=== PATIENT | female | born 1955 | race Caucasian/White ===

== ENCOUNTER 2022-05-11 18:55 | Emergency (ER) | payer OTHER, SELFPAY ==
[2022-05-11 19:09] VITALS: BP 143/76; PULSE 88; RESP 22; TEMP 37; O2SAT 97
[2022-05-11 19:14] VITALS: RESP 22
--- NOTE | 2022-05-11 19:30 | DI.RAD_ITS ---
Exam(s) XR PORTABLE CHEST AP EXAM: XR PORTABLE CHEST AP CLINICAL HISTORY: cough pneumonia, pui. TECHNIQUE: 2D digital imaging was performed. COMPARISON: No exams were available for comparison FINDINGS: Single AP portable view. There is sternotomy wires and plates. Prosthetic cardiac valve. Left atrial appendage clip noted. Heart size upper normal mediastinum is not widened. Right lung is clear. There is plate bolivar atelectasis in the left lung base. No obvious pleural effu sions. No pulmonary edema. IMPRESSION: Platelike atelectasis versus early infiltrate in the left lung base. Recommend nonportable PA and la teral views when clinically possible.Cardiac findings as above. DATA REPOSITORY: RADIATION DOSE DELIVERED: All CT scans at this facility use at least one of these dose optimization techniques: automated exposure control; mA and/or kV adjustment per patient size (includes targeted e xams where dose is matched to clinical indication); or iterative reconstruction.
--- NOTE | 2022-05-11 19:41 | ED.GENADUL_ITS ---
Discharge Plan Disposition Patient Disposition: STILL A PATIENT Condition: Stable Discharge Details Chief Complaint: GenMedical Clinical Impression: COVID-19 Primary Care Provider: None,None ED Provider: Tay Cheney Home Meds and New Rx's Prescriptions: No Action atorvastatin 40 mg Tablet 40 mg PO 1XD amlodipine 5 mg Tablet 5 mg PO 1XD guaifenesin [Ashton's Chest Congestion Mix] 100 mg/5 mL Liquid 100 mg PO Q2H PRN PRN (Reason: Cough) trazodone 150 mg Tablet 150 mg PO HS ferrous sulfate 325 mg (65 mg iron) Tablet 325 mg PO 1XD gabapentin 300 mg Capsule 600 mg PO 3XD hydrochlorothiazide 25 mg Tablet 25 mg PO 1XD losartan 100 mg Tablet 100 mg PO 1XD acetaminophen 500 mg Capsule 1,000 mg PO 1XD nortriptyline 50 mg Capsule 100 mg PO HS escitalopram oxalate 20 mg Tablet 20 mg PO 1XD aspirin 81 mg Capsule 81 mg PO 1XD Novolin 70/30 U-100 Insulin 100 unit/mL (70-30) Suspension 45 unit SUBCUT 1XD Novolin 70/30 U-100 Insulin 100 unit/mL (70-30) Suspension 48 unit SUBCUT HS Medical Decision Making More this is a 66-year-old female with a history of type 1 diabetes and coronary artery disease. She is visiting her daughter in [facility]. She was on a cruise to [facility] when she came down with fever, chills, cough. She reports that she was seen at a emergency department in [facility] last night. She was diagnosed with pneumonia by chest x-ray and given an initial dose of Augmentin and a prescription to follow. She has not had any further antibiotic. She reports a positive test for COVID. She been immunized and boosted x1 against COVID-19. Patient arrives afebrile and oxygenating normally. Her exam is reassuring. Given her age and comorbidities, screening laboratories and x-ray are to be obtained. Will assess for presence of pneumonia and consideration of treatment for COVID. As it is change of shift, patient to be signed out to Dr. Parson pending further evaluation HPI General Mode of arrival: ambulatory . Date/Time Provider Initiated Documentation: 05/11/22 18:56 . Limitations to Documentation: no limitations . Information obtained by: patient . History of Present Illness 66 year old F presents to the emergency department with the chief complaint of Cough, congestion, diagnosed with COVID and pneumonia yesterday, described as moderate, and is localized to the chest. Patient reports no radiation. Patient started experiencing this hour(s) and it has been constant. No relieving factors improve symptom(s), No exacerbating factors reported . Patient notes cough, nausea/vomiting and other (Diarrhea); denies shortness of b reath and weakness. Patient did receive the following treatments prior to arrival, other (Augmentin x1 at midnight) Related Data Home Medications Medication Instructions Recorded Confirmed acetaminophen 500 mg capsule 1,000 mg PO 1XD pain 05/11/22 05/11/22 amlodipine 5 mg tablet 5 mg PO 1XD 05/11/22 05/11/22 aspirin 81 mg capsule 81 mg PO 1XD 05/11/22 05/11/22 atorvastatin 40 mg tablet 40 mg PO 1XD 05/11/22 05/11/22 escitalopram oxalate 20 mg tablet 20 mg PO 1XD 05/11/22 05/11/22 ferrous sulfate 325 mg (65 mg 325 mg PO 1XD 05/11/22 05/11/22 iron) tablet gabapentin 300 mg capsule 600 mg PO 3XD 05/11/22 05/11/22 guaifenesin 100 mg/5 mL oral liquid 100 mg PO Q2H PRN PRN Cough 05/11/22 05/11/22 hydrochlorothiazide 25 mg tablet 25 mg PO 1XD 05/11/22 05/11/22 insulin human U-100 NPH-regulr 45 unit subcut 1XD 05/11/22 05/11/22 70-30 mix 100 unit/mL subcutaneous susp (Novolin 70/30 U-100 Insulin) insulin human U-100 NPH-regulr 48 unit subcut HS 05/11/22 05/11/22 70-30 mix 100 unit/mL subcutaneous susp (Novolin 70/30 U-100 Insulin) losartan 100 mg tablet 100 mg PO 1XD 05/11/22 05/11/22 nortriptyline 50 mg capsule 100 mg PO HS 05/11/22 05/11/22 trazodone 150 mg tablet 150 mg PO HS 05/11/22 05/11/22 Allergies Allergy/AdvReac Type Severity Reaction Status Date / Time metoprolol Allergy Unverified 05/11/22 19:18 General Stated Complaint: GenMedical KRISHAN: 3 PFSH All Active Problems (Updated 05/11/22 @ 19:45 by Tay Cheney MD) COVID-19 (Acute) Social History Smoking/Tobacco Use Status: Never Smoking risk assessment performed?: Yes Drug use: Never Substance use type: does not use Do you feel safe at home: Yes Exam Narrative Exam Narrative: GEN: awake, alert, oriented 3. Pleasant, well groomed, interactive. HEAD: Normocephalic, atraumatic ENT: Mucous membranes moist, oropharynx unremarkable, External ear exam unremarkable EYES: PERRL, EOMI NECK: Full ROM, no YOANDY, no menigismus CHEST/RESP: Nontender, clear to auscultation bilateral, no wheeze/rhonchi/rales CARDIOVASCULAR: RRR, no murmur, rub allen. 2+ Rad pulse bilateral ABDOMEN: Soft, nontender, no mass. +Bowel sounds EXT: Full ROM, no edema, no rash Neuro: Grossly normal neurologic exam, conversant, interactive. Psych: Speech fluent, thoughts congruent, affect normal Course Vital Signs Vital signs: Vital Signs Temperature 37.0 C 05/11/22 19:09 Pulse 88 05/11/22 19:09 Respiratory Rate 22 05/11/22 19:09 Blood Pressure 143/76 H 05/11/22 19:09 Pulse Oximetry 97 05/11/22 19:09 Temperature 37.0 C 05/11/22 19:09 Temperature Source Skin 05/11/22 19:09 Pulse 88 05/11/22 19:09 Respiratory Rate 22 05/11/22 19:14 Respiratory Effort 05/11/22 19:14 Respiratory Depth Normal 05/11/22 19:14 Respiratory Pattern Normal 05/11/22 19:14 Blood Pressure 143/76 H 05/11/22 19:09 Blood Pressure Position Sitting 05/11/22 19:09 Pulse Oximetry 97 05/11/22 19:09 Oxygen Delivery Method Room Air 05/11/22 19:09 Oxygen Flow Rate 0 05/11/22 19:09 Pain Level 0 05/11/22 19:09
[2022-05-11 19:55] LABS: Abs Immature Grans 0.05 10^3/uL (0.0-0.06); Absolute Basophil Count 0.03 10^3/uL (0.0-0.2); Absolute Eosinophil Count 0.14 10^3/uL (0.0-0.7); Absolute Monocyte Count 0.68 10^3/uL (0.1-0.8); Absolute Neutrophil Count 4.51 10^3/uL (1.2-6.7); Basophils % 0.5; Eosinophils % 2.3; HCT 36.3 % (36.0-46.0); HGB 11.7 g/dL (11.2-15.7); Immature Grans % 0.8; Lymphocytes % 11.5; MCH 28.7 pg (27.0-33.0); MCHC 32.2 % (32.0-36.0); MCV 89 fL (80-95); MPV 9.5 fL (8.0-11.0); Monocytes % 11.1; Neutrophils % 73.8; Platelet Count 233 10^3/uL (130-400); RBC 4.07 10^6/uL (3.93-5.22); RDW 13.2 % (11.7-14.6); RDW-SD 43.5 fL; WBC 6.11 10^3/uL (4.4-10.8)
[2022-05-11 20:17] LABS: ALT 28 U/L (14-59); AST 20 U/L (15-37); Albumin 3.4 g/dL (3.4-5.0); Alkaline Phosphatase 92 U/L (46-116); Anion Gap 9.6 mmol/L (3-11); BUN 26 mg/dL (7-18); Bilirubin, Total 0.3 mg/dL (0.2-1.0); CO2 28.4 mmol/L (21.0-32.0); CREATININE 1.2 mg/dL (0.55-1.02); Chloride 98 mmol/L (98-107); Estimated GFR 49.61 (mL/min/1.73m2); Glucose 317 mg/dL (74-106); Magnesium 1.6 mg/dL (1.8-2.4); Sodium 136 mmol/L (136-145); Total Protein 7.7 g/dL (6.4-8.2)
--- NOTE | 2022-05-11 21:07 | DI.VRAD_ITS ---
PROCEDURE INFORMATION: Exam: XR Chest Exam date and time: 05/11/2022 20:29 Age: 66 years old Clinical indication: Prior surgery; Surgery date: 6+ months; Surgery type: Heart; Patient HX: Cough pneumonia, pui TECHNIQUE: Imaging protocol: Radiologic exam of the chest. Views: 1 view. COMPARISON: No relevant prior studies available. FINDINGS: Tubes, catheters and devices: Aortic valvular prosthesis in the expected position. Lungs: Mild central vascular congestion. Minimal linear scarring or subsegmental atelectasis in the left lung base. Pleural spaces: No large pleural effusion. No pneumothorax. Heart/Mediastinum: Left atrial clip. The cardiac silhouette is upper limits of normal. Bones/joints: Internal fixation of the sternum. No displaced fracture. IMPRESSION: 1. Mild central vascular congestion. 2. Minimal linear scarring or subsegmental atelectasis in the left lung base. Dictated and Authenticated by: Sophie Briscoe MD. Ordering:NICOLE Cross MD
--- NOTE | 2022-05-11 21:34 | W.EDPROG ---
Date of service: 05/11/22 Time of Service: 21:35 Medical Decision Making xray unremarkable, labs show no significant findings. She has a hx of cad and after discussion of risks and benefits she consents to monoclonal antibodies. She has no oxygen requirement, non productive cough so doubt pneumonia especially with xray that's unremarkable. Discussed with her and if no reactions with antibodies will likely d/c and have her f/u with her pcp in [place] and return precautions given Sign Out Sign Out Data: Sign Out Comment: Followup labs, CXR, ? MAB Last updated by Tay Cheney MD at 05/11/22 19:53 Discharge Plan Disposition Patient Disposition: HOME Condition: Stable Discharge Details Clinical Impression: COVID-19 Primary Care Provider: None,None ED Provider: Adriel Parson Home Meds and New Rx's Prescriptions: Continued atorvastatin 40 mg Tablet 40 mg PO 1XD amlodipine 5 mg Tablet 5 mg PO 1XD guaifenesin 100 mg/5 mL Liquid 100 mg PO Q2H PRN PRN (Reason: Cough) trazodone 150 mg Tablet 150 mg PO HS ferrous sulfate 325 mg (65 mg iron) Tablet 325 mg PO 1XD gabapentin 300 mg Capsule 600 mg PO 3XD hydrochlorothiazide 25 mg Tablet 25 mg PO 1XD losartan 100 mg Tablet 100 mg PO 1XD acetaminophen 500 mg Capsule 1,000 mg PO 1XD nortriptyline 50 mg Capsule 100 mg PO HS escitalopram oxalate 20 mg Tablet 20 mg PO 1XD aspirin 81 mg Capsule 81 mg PO 1XD Novolin 70/30 U-100 Insulin 100 unit/mL (70-30) Suspension 45 unit SUBCUT 1XD Novolin 70/30 U-100 Insulin 100 unit/mL (70-30) Suspension 48 unit SUBCUT HS Discharge Instructions Instructions: COVID-19 (Coronavirus Disease 2019) (ED) Additional Instructions: your xray did not show a pneumonia, your blood work did not show concerning findings if you feel more ill, have severe worsening shortness of breath or severe pain return to the emergency department if you are not better within a week rfollow up with your primary care provider
[2022-05-11 23:15] VITALS: BP 112/71; PULSE 81; RESP 15; O2SAT 96
== END 2022-05-11 23:20 | disposition home or self-care (01) ==
PROVIDERS: Emergency Medicine; Emergency Provider Emergency Medicine
DX: U07.1 COVID-19 (principal); E10.9 Type 1 diabetes mellitus without complications; I25.10 Atherosclerotic heart disease of native coronary artery without angina pectoris; Z79.82 Long term (current) use of aspirin; Z79.4 Long term (current) use of insulin
CPT/HCPCS: 80053; 96361; 96372; 96374; 99284; Q0222; 71045; 83735; 85025

== ENCOUNTER 2022-05-13 14:53 | Emergency (ER) | payer OTHER, SELFPAY ==
[2022-05-13] VITALS (34 sets, daily range): BP systolic 91–140; BP diastolic 49–76; PULSE 64–80; RESP 14–29; TEMP 36.3–37.1; O2SAT 92–100
--- NOTE | 2022-05-13 15:00 | RT.EKG_ITS ---
APPROVED REPORT Exam: Resting ECG Reason for Exam: weakness Patient Location: E HR:71 bpm ECG Measurements Heart Rate 71 AXIS MO 169 P 64 QRSd 94 QRS 50 QT 441 T 75 QTc 481 Conclusion Sinus rhythm...normal P axis, V-rate 60- 99. Sinus. Normal axis. No STEMI. I have reviewed and interpreted ECG and agree with software generated interpretation.
[2022-05-13 15:37] LABS: Abs Immature Grans 0.03 10^3/uL (0.0-0.06); Absolute Basophil Count 0.02 10^3/uL (0.0-0.2); Absolute Eosinophil Count 0.21 10^3/uL (0.0-0.7); Absolute Lymphocyte Count 1.12 10^3/uL (1.2-3.4); Absolute Monocyte Count 0.41 10^3/uL (0.1-0.8); Absolute Neutrophil Count 2.74 10^3/uL (1.2-6.7); Basophils % 0.4; Eosinophils % 4.6; HCT 34.3 % (36.0-46.0); HGB 11.3 g/dL (11.2-15.7); Immature Grans % 0.7; Lymphocytes % 24.7; MCHC 32.9 % (32.0-36.0); MCV 88 fL (80-95); MPV 9.6 fL (8.0-11.0); Monocytes % 9.1; Neutrophils % 60.5; Platelet Count 243 10^3/uL (130-400); RDW 13.2 % (11.7-14.6); RDW-SD 42.3 fL; WBC 4.53 10^3/uL (4.4-10.8)
--- NOTE | 2022-05-13 15:42 | ED.GENADUL_ITS ---
Discharge Plan Disposition Patient Disposition: HOME Condition: Improving Discharge Details Clinical Impression: Muscle spasm, COVID-19 Primary Care Provider: None,None ED Provider: Luis Ballesteros Home Meds and New Rx's Prescriptions: Continued atorvastatin 40 mg Tablet 40 mg PO 1XD amlodipine 5 mg Tablet 5 mg PO 1XD trazodone 150 mg Tablet 150 mg PO HS ferrous sulfate 325 mg (65 mg iron) Tablet 325 mg PO 1XD gabapentin 300 mg Capsule 600 mg PO 3XD hydrochlorothiazide 25 mg Tablet 25 mg PO 1XD losartan 100 mg Tablet 100 mg PO 1XD acetaminophen 500 mg Capsule 1,000 mg PO 1XD nortriptyline 50 mg Capsule 100 mg PO HS escitalopram oxalate 20 mg Tablet 20 mg PO 1XD aspirin 81 mg Capsule 81 mg PO 1XD Novolin 70/30 U-100 Insulin 100 unit/mL (70-30) Suspension 45 unit SUBCUT 1XD Novolin 70/30 U-100 Insulin 100 unit/mL (70-30) Suspension 48 unit SUBCUT HS Discharge Instructions Instructions: Muscle Spasm (ED) Additional Instructions: It is very important during viral illness that you stay well-hydrated as this may have contributed to some of your symptoms today. Your emergency department evaluation has shown no worrisome findings but if you develop new or worsening symptoms feel free to return to the emergency department for reassessment. If n ot improving in the next week please follow-up with your primary care provider also for recheck of your symptoms Referrals: Primary Care Provider [Outside] Discharge Data Discharge Date/Time-TO BE ENTERED AT DEPARTURE: 05/13/22 19:54 Medical Decision Making <Heike Guido NP - Last Filed: 05/13/22 16:03> Labs ordered, EKG, CT head without contrast. Urinalysis urine drug screen. Care is to be handed off to oncoming provider Kenyon Ballesteros NP pending head CT and labs. No focal neurodeficits noted. <Luis Ballesteros NP - Last Filed: 05/14/22 09:05> Labs ordered, EKG, CT head without contrast. Urinalysis urine drug screen. Care is to be handed off to oncoming provider Kenyon Ballesteros NP pending head CT and labs. No focal neurodeficits noted. 1600 care assumed from Heike Guido COMMODITY MANAGEMENT SPECIALIST. Reviewed patient's labs which show an unremarkable CBC, negative D-dimer, CMP with increased BUN and creatinine, we will plan on giving fluids. Glucose slightly elevated but not emergently concerning, magnesium is 1.6 so we will replete oral mag. Troponin was negative. Please see physician interpretation for full interpretation of EKG but no acute STEMI noted. Urinalysis shows high specific gravity and glucose otherwise unremarkable. Patient is positive for tricyclic antidepressants on UDS but again otherwise unremarkable. Reassessed patient and patient remains with no focal neurodeficits. Second troponin is also negative. CT scan showed no worrisome acute findings. After discussion of symptoms with patient she does endorse some potential anxiety reaction. At this time I doubt TIA or seizure- like activity question possible carpal spasm. Patient has had no return of symptoms no worsening symptoms and has no current complaints at this time. Patient is COVID-positive but is doing well with stable vital signs no hypoxia. Discussed with patient return and follow-up precautions. Patient is endorsing desire to go home which I feel with current negative work-up is appropriate. After discussion of diagnosis and plan of care patient has no further needs, questions, or concerns and states clear understanding to return to the emergency department for any worsening symptoms. This documentation was generated using [employer] dictation system, please disregard any oddities of phrase or misspellings. Imaging Data Radiologic Study: Attestation: I personally reviewed and interpreted this imaging study as follows: Imaging: CT Scan Radiologist's impression: FINDINGS: Brain: Mild nonspecific hypodensities of the periventricular and deep subcortical white matter, most likely secondary to chronic microangiopathic ischemic change. No intracranial hemorrhage or extra-axial fluid collection. No evidence of mass effect or midline shift. Cano-white matter differentiation is normal. Cerebral ventricles: Mild prominence of the ventricles and sulci, most likely attributed to parenchymal volume loss. Paranasal sinuses: Mild mucosal thickening of the paranasal sinuses. Mastoid air cells: Unremarkable. Bones/joints: No acute osseus lesion or fracture. Soft tissues: Unremarkable. IMPRESSION: 1. No acute intracranial pathology. 2. Mild mucosal thickening of the paranasal sinuses. 3. Other chronic findings, as above. Lab Data Lab results reviewed: Yes I reviewed the patient's lab results. HPI <Heike Guido NP - Last Filed: 05/13/22 16:03> General Mode of arrival: EMS . Date/Time Provider Initiated Documentation: 05/13/22 15:12 . Limitations to Documentation: no limitations . Information obtained by: patient, RN notes reviewed and old records reviewed . HPI Narrative: 66-year-old female presents to the ER with chief complaint of upper extremity tremors which began suddenly while patient was taking a nap. Patient was seen here in the department 2 days ago for COVID-19 and was given the monoclonal antibodies. Patient states that today she was having a headache took some Tylenol with to lay down and began with uncontrollable shaking of her left arm. It stopped and then began again and this time it was bilateral arms. She also reports being unable to focus while looking at her phone. She also states that sometimes she has a hard time talking. She has no focal neurodeficits noted upon my initial exam. she is alert and oriented x4. She denies any recent head injuries. However she does report increased frequent falls after her open heart surgery. Related Data Home Medications Medication Instructions Recorded Confirmed acetaminophen 500 mg capsule 1,000 mg PO 1XD pain 05/11/22 05/13/22 amlodipine 5 mg tablet 5 mg PO 1XD 05/11/22 05/13/22 aspirin 81 mg capsule 81 mg PO 1XD 05/11/22 05/13/22 atorvastatin 40 mg tablet 40 mg PO 1XD 05/11/22 05/13/22 escitalopram oxalate 20 mg tablet 20 mg PO 1XD 05/11/22 05/13/22 ferrous sulfate 325 mg (65 mg 325 mg PO 1XD 05/11/22 05/13/22 iron) tablet gabapentin 300 mg capsule 600 mg PO 3XD 05/11/22 05/13/22 hydrochlorothiazide 25 mg tablet 25 mg PO 1XD 05/11/22 05/13/22 insulin human U-100 NPH-regulr 45 unit subcut 1XD 05/11/22 05/13/22 70-30 mix 100 unit/mL subcutaneous susp (Novolin 70/30 U-100 Insulin) insulin human U-100 NPH-regulr 48 unit subcut HS 05/11/22 05/13/22 70-30 mix 100 unit/mL subcutaneous susp (Novolin 70/30 U-100 Insulin) losartan 100 mg tablet 100 mg PO 1XD 05/11/22 05/13/22 nortriptyline 50 mg capsule 100 mg PO HS 05/11/22 05/13/22 trazodone 150 mg tablet 150 mg PO HS 05/11/22 05/13/22 Allergies Allergy/AdvReac Type Severity Reaction Status Date / Time metoprolol Allergy Unverified 05/13/22 15:01 General Stated Complaint: GenMedical KRISHAN: 3 Review of Systems <Heike Guido NP - Last Filed: 05/13/22 16:03> All systems reviewed & are unremarkable except as noted in HPI and below Constitutional Constitutional: Reports headache(s) and Denies weakness ENT Ears, Nose, Mouth, and Throat: Reports headache(s) Neurologic Neurologic: Reports headache(s), Reports convulsions, Reports tremor(s) and De nies weakness PFSH <Heike Guido NP - Last Filed: 05/13/22 16:03> All Active Problems (Updated 05/13/22 @ 19:49 by Luis Ballesteros NP) COVID-19 (Acute) Muscle spasm (Acute) Social History Smoking/Tobacco Use Status: Never Smoking risk assessment performed?: Yes Alcohol Intake: current Alcohol Intake frequency: a few times a month Alcohol type: beer and wine Drug use: Never Substance use type: does not use Do you feel safe at home: Yes Additional Social history: patient states feeling safe now because her soon to beex does nto live with her anymore. Exam <Heike Guido NP - Last Filed: 05/13/22 16:03> Narrative Exam Narrative: Constitutional: Alert and oriented x3. Appears stated age. Normal body habitus. Head: Normocephalic, no trauma. Eyes: Pupils PERRL, Red reflex noted, EOM's intact. Eyelids symmetrical without lesions, discharge, or swelling. ENT: Bilateral TM's WNL, External ear normal to inspection, no mastoid TTP, swelling, or erythema, Nasal turbinates WNL, no nasal discharge. Normal dentition, Posterior pharynx WNL, no exudate. Chest: RRR, Normal S1, S2, distal pulses intact. Resp: Lungs clear to auscultation bilaterally, no wheezes, rales, or rhonchi. Abdomen: Soft, non-distended, Normoactive bowel sounds all 4 quads. Musculoskeletal: Normal gait, 5/5 strength to all four extremities. Skin: No suspicious rashes or lesions. Capillary refill less than 2 sec. Neurologic: Cranial nerves II-XII intact. Alert and oriented x 3. Motor: No deficits noted. Sensory: Intact bilaterally all 4 extremities. Reflexes: DTR's intact bilaterally.. Hematologic/Lymphatic: No ecchymosis, no lymphadenopathy. Course <Heike Guido NP - Last Filed: 05/13/22 16:03> Vital Signs Vital signs: Vital Signs Temperature 37.1 C 05/13/22 14:57 Pulse 80 05/13/22 14:57 Respiratory Rate 16 05/13/22 14:57 Blood Pressure 140/57 L 05/13/22 14:57 Pulse Oximetry 98 05/13/22 14:57 Temperature 37.1 C 05/13/22 14:57 Temperature Source Skin 05/13/22 14:57 Pulse 80 05/13/22 14:57 Respiratory Rate 16 05/13/22 15:04 Respiratory Effort Non-Labored 05/13/22 15:04 Respiratory Depth Normal 05/13/22 15:04 Respiratory Pattern Normal 05/13/22 15:04 Blood Pressure 140/57 L 05/13/22 14:57 Blood Pressure Position Supine 05/13/22 14:57 Pulse Oximetry 98 05/13/22 14:57 Oxygen Delivery Method Room Air 05/13/22 14:57 Oxygen Flow Rate 0 05/13/22 14:57 Pain Level 0 05/13/22 14:57 Lab/Test Results Lab/Test Results: Laboratory Tests Range/Units 05/13/22 15:20 WBC (4.4-10.8) 10^3/uL 4.53 RBC (3.93-5.22) 10^6/uL 3.90 L Hgb (11.2-15.7) g/dL 11.3 Hct (36.0-46.0) % 34.3 L MCV (80-95) fL 88 MCH (27.0-33.0) pg 29.0 MCHC (32.0-36.0) % 32.9 RDW (11.7-14.6) % 13.2 Plt Count (130-400) 10^3/uL 243 MPV (8.0-11.0) fL 9.6 Immature Gran % 0.7 Neutrophils % 60.5 Lymphocytes % 24.7 Monocytes % 9.1 Eosinophils % 4.6 Basophils % 0.4 Nucleated RBC % (0.0-0.3) % 0.0 Absolute Neutrophils (1.2-6.7) 10^3/uL 2.74 Absolute Lymphocytes (1.2-3.4) 10^3/uL 1.12 L Absolute Monocytes (0.1-0.8) 10^3/uL 0.41 Absolute Eosinophils (0.0-0.7) 10^3/uL 0.21 Absolute Basophils (0.0-0.2) 10^3/uL 0.02 Sign Out <Heike Guido NP - Last Filed: 05/13/22 16:03> Sign Out Data: Sign Out Comment: Pending labs, CT head. Tremors, Covid POsitive, had Nobles antibodies 2 days ago. Last updated by Heike Guido NP at 05/13/22 16:01 PAWSS <Heike Guido NP - Last Filed: 05/13/22 16:03> Have you Been Recently Intoxicated or Drunk Within the Last 30 days?: No Have you Ever Experienced Previous Episodes of Alcohol Withdrawal?: No Have you ever Experienced Withdrawal Seizures?: No Have you ever Experienced Delirium Tremens(DT)s?: No Have you ever undergone Alcohol Rehabilitation Treatment (i.e, inpt ot outpatient treatment programs)?: No Have you ever Experienced Blackouts?: No Have you ever Combined Alcohol with other Downers within the last 90 days?: No Have you ever Combined Alcohol with any other Substance of Abuse during the last 90 days?: No Positive Blood Alcohol level on Presentation? [PCS.BAL]: No Evidence of Increased Autonomic Activity (i.e. HR>120, tremor, sweating, agitation, nausea)?: No Result: 0 <Luis Ballesteros NP - Last Filed: 05/14/22 09:05> Result: 0
--- NOTE | 2022-05-13 15:45 | DI.CT_ITS ---
Exam(s) CT HEAD WO EXAM: CT HEAD WO CLINICAL HISTORY: Seizure like activity. TECHNIQUE: Imaging Protocol: Axial computed tomography images with coronal and sagittal reformatted images were created and reviewed COMPARISON: CR,XR XR PORTABLE CHEST AP from 05/11/2022 FINDINGS: There are no skull fractures. There is mucosal thickening and some fluid in the maxillary sinuses c onsistent with sinusitis. Also in the sphenoid sinuses. Frontal sinuses are clear as are the ethmoi david air cells and mastoid air cells. There is no fluid in the middle ear cavities.. There is no evidence of intracranial hemorrhage, mass effect, or shift of midline structures. There are no extra-axial fluid collections. The ventricles are not enlarged or shifted and there is no blo od within the ventricular system nor within the basal cisterns. Vascular calcification is noted in both vertebral arteries at the skull base as well as within the in tracavernous internal carotid arteries. IMPRESSION: No acute intracranial findings on this noninfused CT scan of the brain. Sinusitis as described above. RADIATION DOSE DELIVERED: 799.94mGy.cm Total DLP DATA REPOSITORY: All CT scans at this facility are submitted to the National Radiology Data Registry (NRDR) Dose Index Registry (DIR) with the [employer] ([employer]). RADIATION OPTIMIZATION: All CT scans at this facility use at least one of these dose optimization te chniques: automated exposure control; mA and/or kV adjustment per patient size (includes targeted exa ms where dose is matched to clinical indication); or iterative reconstruction.
[2022-05-13 16:12] LABS: D-Dimer 489 ng/mlFEU (<500)
[2022-05-13 16:15] LABS: ALT 27 U/L (14-59); AST 24 U/L (15-37); Alkaline Phosphatase 82 U/L (46-116); Anion Gap 8.3 mmol/L (3-11); BUN 23 mg/dL (7-18); Bilirubin, Total 0.2 mg/dL (0.2-1.0); CO2 27.7 mmol/L (21.0-32.0); CREATININE 1.1 mg/dL (0.55-1.02); Calcium 9.1 mg/dL (8.5-10.1); Chloride 103 mmol/L (98-107); Estimated GFR 55.07 (mL/min/1.73m2); Glucose 253 mg/dL (74-106); Magnesium 1.6 mg/dL (1.8-2.4); Potassium 3.7 mmol/L (3.5-5.1); Sodium 139 mmol/L (136-145); Total Protein 7.2 g/dL (6.4-8.2); Troponin I < 50 ng/L (<or=60)
[2022-05-13] MEDS: Magnesium Oxide 400 MG TAB PO (16:35)
[2022-05-13 16:52] LABS: Bilirubin Negative (Negative); Blood Negative (Negative); Clarity Clear (Clear); Glucose 500 mg/dL (Negative); Ketones Negative (Negative); Leukocyte Esterase Negative (Negative); Nitrite Negative (Negative); Specific Gravity >= 1.030 (1.005-1.025); Urobilinogen 0.2 EU/dL (Up TO 0.2)
--- NOTE | 2022-05-13 17:01 | DI.VRAD_ITS ---
PROCEDURE INFORMATION: Exam: CT Head Without Contrast Exam date and time: 05/13/2022 4:53 PM Age: 66 years old Clinical indication: Seizure like activity TECHNIQUE: Imaging protocol: Computed tomography of the head without contrast. COMPARISON: No relevant prior studies available. FINDINGS: Brain: Mild nonspecific hypodensities of the periventricular and deep subcortical white matter, most likely secondary to chronic microangiopathic ischemic change. No intracranial hemorrhage or extra-axial fluid collection. No evidence of mass effect or midline shift. Cano-white matter differentiation is normal. Cerebral ventricles: Mild prominence of the ventricles and sulci, most likely attributed to parenchymal volume loss. Paranasal sinuses: Mild mucosal thickening of the paranasal sinuses. Mastoid air cells: Unremarkable. Bones/joints: No acute osseus lesion or fracture. Soft tissues: Unremarkable. IMPRESSION: 1. No acute intracranial pathology. 2. Mild mucosal thickening of the paranasal sinuses. 3. Other chronic findings, as above. Dictated and Authenticated by: Ash Gilliam MD. Ordering:EVER Burroughs MD
[2022-05-13 17:33] LABS: *AMPHETAMINES SCREEN URINE Negative (Negative); *BARBITURATES SCREEN URINE Negative (Negative); *BENZODIAZEPINES SCREEN URINE Negative (Negative); Cannabinoids THC Negative (Negative); Cocaine Screen,Urine Negative (Negative); METHADONE URINE SCREEN Negative (Negative); OPIATES URINE SCREEN Negative (Negative)
[2022-05-13 17:34] LABS: Tricyclic Antidepressants Positive (Negative)
[2022-05-13] MEDS: Normal Saline 500 ML IV (17:56)
[2022-05-13 19:32] LABS: Troponin I < 50 ng/L (<or=60)
== END 2022-05-13 19:54 | disposition home or self-care (01) ==
PROVIDERS: Registered Nurse Emergency; Emergency Provider Nurse Practitioner Family
DX: U07.1 COVID-19 (principal); M62.838 Other muscle spasm; R94.4 Abnormal results of kidney function studies; R73.01 Impaired fasting glucose; Z79.82 Long term (current) use of aspirin
CPT/HCPCS: 36415; 80053; 80307; 93005; 96360; 99284; 70450; 81003; 83735; 84484; 85025; 85379; 93010; 99285